=== PATIENT | male | born 1945 | race Caucasian/White ===

== ENCOUNTER 2024-06-23 10:05 | Day surgery (SDC) | payer OTHER, BC ==
[2024-06-18 17:04] VITALS: BMI 22.4
[2024-06-23 12:24] VITALS: BP 122/60; PULSE 80; RESP 18; TEMP 97.5
== END 2024-06-23 11:44 | disposition home or self-care (01) ==
LOC: FASU-ENDO 10:05
PROVIDERS: ATTEND Internal Medicine Gastroenterology
PROC: 0DJD8ZZ Inspection of Lower Intestinal Tract, Via Natural or Artificial Opening Endoscopic (ICD-10-PCS; principal; 2024-06-23 10:36)
DX: Z12.11 Encounter for screening for malignant neoplasm of colon (principal); K57.30 Diverticulosis of large intestine without perforation or abscess without bleeding